=== PATIENT | female | born 1960 | race African-American/Black ===

== ENCOUNTER 2018-06-23 01:17 | Inpatient (IN) | payer OTHER, MEDICAID ==
[~2018-06-23] VITALS: Ht 160 cm; Wt 60.8 kg
[2018-06-23 01:20] VITALS: BP_SYST 132
[2018-06-23 03:42] LABS: BASOPHILS % (AUTO) 0.6 % (0.0-2.0); EOSINOPHILS # (AUTO) 0.2 K/uL (0.0-0.4); EOSINOPHILS % (AUTO) 3.3 % (0.0-4.0); HEMATOCRIT 39.3 % (36-48); HEMOGLOBIN 12.9 g/dL (12.0-16.0); LYMPHOCYTES # (AUTO) 2.3 K/uL (1.0-5.5); LYMPHOCYTES % (AUTO) 35.1 % (20.5-51.5); MEAN CORPUSCULAR HEMOGLOBIN 30 pg (27-31); MEAN CORPUSCULAR HGB CONC 33 % (32-36); MEAN CORPUSCULAR VOLUME 91 fL (79.0-98.0); MONOCYTES # (AUTO) 0.4 K/uL (0.0-1.0); MONOCYTES % (AUTO) 6.1 % (1.7-9.3); NEUTROPHILS # (AUTO) 3.5 K/uL (1.8-7.7); NEUTROPHILS % (AUTO) 54.9 % (40.0-70.0); PLATELET COUNT (AUTO) 352 K/uL (130-430); RED BLOOD CELL COUNT(AUTO) 4.32 MIL/uL (4.2-6.2); RED CELL DISTRIBUTION WIDTH 13.1 % (9.0-15.0); WHITE BLOOD COUNT (AUTO) 6.4 K/uL (4.8-10.8)
[2018-06-23 03:43] LABS: ANION GAP 11 (5-15); CALCIUM 9.4 mg/dL (8.4-11.0); CHLORIDE 105 mmol/L (98-107); CREATININE 0.53 mg/dL (0.55-1.30); GLUCOSE 85 mg/dL (70-99); POTASSIUM 4.5 mmol/L (3.5-5.1); SODIUM SERUM 141 mmol/L (136-145); UREA NITROGEN, BLOOD 15 mg/dL (8-21)
[2018-06-23 03:46] LABS: GFR AFRICAN AMERICAN 153 mL/min (>90)
[2018-06-23 03:50] LABS: ALANINE AMINOTRANSFERASE 24 U/L (12-78); ALBUMIN 3.7 g/dL (3.4-4.8); ASPARTATE AMINOTRANSFERASE 20 U/L (10-37); TOTAL BILIRUBIN 0.9 mg/dL (0.0-1.0)
[2018-06-23 03:51] LABS: ACETAMINOPHEN < 1 ug/mL (1-30); ALCOHOL, BLOOD < 3 mg/dL (<10)
[2018-06-23 04:23] LABS: BILIRUBIN,URINE NEGATIVE (NEGATIVE); BLOOD, URINE NEGATIVE (NEGATIVE); CLARITY/URINE CLEAR (CLEAR); COLOR,URINE YELLOW (YELLOW); GLUCOSE,URINE NEGATIVE (NEGATIVE); KETONES,URINE NEGATIVE (NEGATIVE); LEUKOCYTE ESTERASE ,URINE 1+ (NEGATIVE); NITRITE, URINE NEGATIVE (NEGATIVE); PH,URINE 5.5 (5.0-8.0); PROTEIN URINE NEGATIVE (NEGATIVE); UROBILINOGEN,URINE 0.2 (0.2-1.0)
[2018-06-23 04:34] LABS: RBC,URINE 0-3 /HPF (0-3)
[2018-06-23 04:35] LABS: BACTERIA,URINE None Seen /HPF (None Seen)
[2018-06-23 04:58] LABS: BARBITURATE, URINE NEGATIVE (NEG <=200); BENZODIAZEPINE, URINE NEGATIVE (NEG <=150); CANNABINOID, URINE NEGATIVE (NEG <=50); COCAINE, URINE NEGATIVE (NEG <=150); METHAMPHETAMINES SCREEN,URINE NEGATIVE (NEG <=500); OPIATE, URINE NEGATIVE (NEG <=100); PHENCYCLIDINE SCREEN,URINE NEGATIVE (NEG <=25); UR TRICYCLIC ANTIDEPRESSANTS NEGATIVE (NEG <=300); URINE AMPHETAMINE NEGATIVE (NEG <=500); URINE METHADONE NEGATIVE (NEG <=200); URINE OXYCODONE SCREEN NEGATIVE (NEG <=100); URINE PROPOXYPHENE SCREEN NEGATIVE (NEG <=300)
[2018-06-23 06:08] VITALS: BP_SYST 113
[2018-06-23] MEDS ORDERED: ASCO500T20 PO (07:48)
[2018-06-23] MEDS ORDERED: MAGN100T6 PO (07:48)
[2018-06-23] MEDS ORDERED: VITD2000 PO (07:48)
[2018-06-23 08:00] VITALS: BP_SYST 113
[2018-06-23 12:55] VITALS: BP_SYST 166
[2018-06-23 16:45] VITALS: BP_SYST 137
[2018-06-23 20:19] VITALS: BP_SYST 136
[2018-06-24 00:24] VITALS: BP_SYST 102
[2018-06-24 06:27] LABS: BASOPHILS % (AUTO) 0.5 % (0.0-2.0); EOSINOPHILS # (AUTO) 0.2 K/uL (0.0-0.4); EOSINOPHILS % (AUTO) 4.7 % (0.0-4.0); HEMOGLOBIN 11.9 g/dL (12.0-16.0); LYMPHOCYTES # (AUTO) 2.3 K/uL (1.0-5.5); LYMPHOCYTES % (AUTO) 47.4 % (20.5-51.5); MEAN CORPUSCULAR HEMOGLOBIN 30 pg (27-31); MEAN CORPUSCULAR HGB CONC 33 % (32-36); MEAN CORPUSCULAR VOLUME 92 fL (79.0-98.0); MONOCYTES # (AUTO) 0.3 K/uL (0.0-1.0); MONOCYTES % (AUTO) 7.4 % (1.7-9.3); NEUTROPHILS # (AUTO) 1.8 K/uL (1.8-7.7); PLATELET COUNT (AUTO) 371 K/uL (130-430); RED BLOOD CELL COUNT(AUTO) 3.91 MIL/uL (4.2-6.2); WHITE BLOOD COUNT (AUTO) 4.6 K/uL (4.8-10.8)
[2018-06-24 07:37] LABS: ERYTHROCYTE SEDIMENTATION RATE 23 MM/HR (0-20)
[2018-06-24 07:41] LABS: C-REACTIVE PROTEIN QUANT 1.8 mg/dL (0-0.5); CALCIUM 9.1 mg/dL (8.4-11.0); CREATININE 0.62 mg/dL (0.55-1.30); POTASSIUM 4.3 mmol/L (3.5-5.1)
[2018-06-24 12:05] VITALS: BP_SYST 134
[2018-06-24] MEDS ORDERED: GOLYTELY / COLYTE SOLUTION 4 LITERS PO ONE (15:15)
[2018-06-24 16:00] VITALS: BP_SYST 124
[2018-06-24 20:00] VITALS: BP_SYST 144
[2018-06-24] MEDS: ACETAMINOPHEN 325 MG TABLET PO PRN (21:05)
[2018-06-25 01:36] VITALS: BP_SYST 116
[2018-06-25 07:57] VITALS: BP_SYST 123
[2018-06-25 12:00] VITALS: BP_SYST 125
[2018-06-25] MEDS ORDERED: MAGNESIUM CITRATE 300 ML ORAL SOLUTION PO ONE (15:00)
[2018-06-25 16:00] VITALS: BP_SYST 127
[2018-06-25 19:50] VITALS: BP_SYST 114
[2018-06-25] MEDS ORDERED: DIPHENHYDRAMINE HCL 50 MG CAPSULE PO PRN (23:30)
[2018-06-26 08:40] VITALS: BP_SYST 139
[2018-06-26 12:25] VITALS: BP_SYST 114; BP_SYST 138
[2018-06-26] MEDS ORDERED: MAGNESIUM CITRATE 300 ML ORAL SOLUTION PO ONE (14:45)
[2018-06-26 16:14] VITALS: BP_SYST 137
[2018-06-26 20:00] VITALS: BP_SYST 127
[2018-06-27 00:34] VITALS: BP_SYST 110
[2018-06-27 08:04] VITALS: BP_SYST 130
[2018-06-27] MEDS: ACETAMINOPHEN 325 MG TABLET PO PRN (09:23)
[2018-06-27] MEDS ORDERED: MAGNESIUM CITRATE 300 ML ORAL SOLUTION PO ONE (10:45)
[2018-06-27] MEDS ORDERED: BISACODYL 10 MG/SUPPOSITORY RC PRN (10:45)
[2018-06-27 12:00] VITALS: BP_SYST 137
[2018-06-27 16:50] VITALS: BP_SYST 140
[2018-06-27 20:00] VITALS: BP_SYST 138
[2018-06-28] VITALS: BP_SYST 116
[2018-06-28 08:18] VITALS: BP_SYST 140
[2018-06-28] MEDS: ACETAMINOPHEN 325 MG TABLET PO PRN ×2 (11:41→19:55)
[2018-06-28 13:14] VITALS: BP_SYST 139
[2018-06-28 17:45] VITALS: BP_SYST 130
[2018-06-28 18:53] VITALS: BP_SYST 130
[2018-06-28 19:56] VITALS: BP_SYST 149
== END 2018-06-28 21:00 | disposition home or self-care (01) | DRG 59 ==
LOC: SED 01:17 → EDBD 01:17 → SMU 06:01
PROVIDERS: ADMIT Preventive Medicine Preventive Medicine/Occupational Environmental Medicine; ATTEND Preventive Medicine Preventive Medicine/Occupational Environmental Medicine
DX: G35 Multiple sclerosis (principal); F23 Brief psychotic disorder; N39.0 Urinary tract infection, site not specified; G82.20 Paraplegia, unspecified; G40.909 Epilepsy, unspecified, not intractable, without status epilepticus; L89.321 Pressure ulcer of left buttock, stage 1; R32 Unspecified urinary incontinence; K56.41 Fecal impaction; D64.9 Anemia, unspecified; D72.819 Decreased white blood cell count, unspecified; M85.80 Other specified disorders of bone density and structure, unspecified site; H54.8 Legal blindness, as defined in USA; Z74.01 Bed confinement status; Z99.3 Dependence on wheelchair
CPT/HCPCS: 36415; 71045; 74018; 80048; 80053; 80307; 81000-TC; 83605; 85025; 85651-TC; 86140; 87040-TC; 87086; 93005; 97110-GP; 97530-GP; 99285; G0480; G0481; G0482